=== PATIENT | male | born 1950 | race Caucasian/White ===

== ENCOUNTER 2021-07-17 18:06 | Emergency (ER) | payer OTHER ==
[~2021-07-17] VITALS: Ht 188 cm; Wt 102.1 kg
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
[2021-07-17 18:24] LABS: ABSOLUTE NEUTROPHILS 4.5 thou/uL (1.4-8.2); BASOPHILS 0.3 % (0.0-2.0); EOSINOPHILS 0.5 % (0.0-3.0); HEMATOCRIT 39.8 % (42.0-52.0); HEMOGLOBIN 13.6 gm/dL (14.0-18.0); LYMPHOCYTES 16.3 % (24.0-44.0); MCH 31.5 pg (26.0-34.0); MCHC 34.3 g/dL (28.0-37.0); MCV 91.9 fL (80.0-100.0); MONOCYTES 12.8 % (1.0-8.0); PLATELET COUNT 307 thou/uL (150-400); POLYS 70.1 % (36.0-66.0); RBC 4.33 mil/uL (4.50-6.00); RDW 13.4 % (10.5-14.5); WBC 6.4 thou/uL (4.0-11.0)
[2021-07-17] MEDS ORDERED: ATORVASTATIN CA80 MG PO (18:29)
[2021-07-17] MEDS ORDERED: ASPIRIN EC81 M1 PO (18:29)
[2021-07-17] MEDS ORDERED: VITAMIN D310 MC2 PO (18:30)
[2021-07-17] MEDS ORDERED: B-12 DOTS500 MCG PO (18:30)
[2021-07-17] MEDS ORDERED: DEPAKOTE SPRIN125 MG PO ×2 (18:30→18:31)
[2021-07-17] MEDS ORDERED: LIDODERM1 EACH TOP (18:32)
[2021-07-17] MEDS ORDERED: PROSCAR 5MG TABL5 M1 PO (18:32)
[2021-07-17] MEDS ORDERED: FOLIC ACID1 MG PO (18:32)
[2021-07-17] MEDS ORDERED: PRAZOSIN 1 MG CA1 M1 PO (18:33)
[2021-07-17] MEDS ORDERED: MIRALAX119 GM PO (18:33)
[2021-07-17 18:34] LABS: CREATININE 1.5 mg/dL (0.7-1.3); POTASSIUM 4.4 mmol/L (3.5-5.1)
[2021-07-17] MEDS ORDERED: ZYPREXA2.5 MG PO (18:34)
[2021-07-17] MEDS ORDERED: VISTARIL 25 MG25 M1 PO ×2 (18:34→18:35)
[2021-07-17] MEDS ORDERED: ZYPREXA5 MG PO (18:34)
[2021-07-17] MEDS ORDERED: SENNA-S 8.6-501 EACH PO (18:35)
[2021-07-17] MEDS ORDERED: FLOMAX0.4 MG PO (18:35)
[2021-07-17] MEDS ORDERED: EXELON1 EACH TRANSDERM (18:36)
[2021-07-17 18:40] LABS: ALBUMIN 3.7 g/dL (3.4-5.0); TOTAL BILIRUBIN 0.4 mg/dL (0.2-1.0); TOTAL PROTEIN 7.8 g/dL (6.4-8.2)
[2021-07-17 23:45] LABS: URINE BILIRUBIN NEGATIVE (Negative); URINE BLOOD NEGATIVE (Negative); URINE CLARITY CLEAR; URINE COLOR YELLOW; URINE GLUCOSE-RANDOM* NEGATIVE (Negative); URINE KETONES 1+ (Negative); URINE LEUKOCYTES-REFLEX NEGATIVE (Negative); URINE NITRITE-REFLEX NEGATIVE (Negative); URINE PROTEIN (DIPSTICK) NEGATIVE (Negative); URINE SPECIFIC GRAVITY >= 1.030 (1.005-1.035)
[2021-07-18] MEDS ORDERED: AAA-MED REC COMPLETE PO (15:30)
[2021-07-18] MEDS ORDERED: CHLORPROMAZINE25 M3 PO (21:28)
[2021-07-18] MEDS ORDERED: ATIVAN1 M1 PO (21:28)
[2021-07-18 22:50] VITALS: BP 115/80
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
== END 2021-07-18 22:52 ==
LOC: ER 18:06
PROVIDERS: Emergency Medicine
DX: S00.83XA Contusion of other part of head, initial encounter (principal); Z20.822 Contact with and (suspected) exposure to COVID-19; R45.1 Restlessness and agitation; F02.80 Dementia in other diseases classified elsewhere, unspecified severity, without behavioral disturbance, psychotic disturbance, mood disturbance, and anxiety; Z88.8 Allergy status to other drugs, medicaments and biological substances; Z79.82 Long term (current) use of aspirin; Z79.891 Long term (current) use of opiate analgesic; Z79.899 Other long term (current) drug therapy; W19.XXXA Unspecified fall, initial encounter; Y93.89 Activity, other specified; Y92.89 Other specified places as the place of occurrence of the external cause; Y99.8 Other external cause status